=== PATIENT | male | born 1940 | race Hispanic/Latino ===

== ENCOUNTER → 2019-07-14 | Outpatient (CLI) | payer MEDICARE ==
--- NOTE | 2019-07-14 15:29 | Diagnostic Imaging Report ---
Examination: MRI SPINE LUMBAR WO CONTRAST History: Fall 3 months ago Comparison studies: None Technique: Sagittal, coronal and axial T2 , sagittal T1 and STIR; axial spin density oblique. Findings: Motion artifact on the axial proton density images. Number of lumbar vertebral bodies: Five. Alignment: Normal lordosis. No scoliosis. Soft tissues: No T2 hyperintense inflammatory changes. Posterior paraspinal soft tissues and muscles: No abnormality. Lower thoracic cord: Normal in signal and morphology. The tip of the conus is at T12. Cauda equina: No masses. No arachnoiditis. Vertebrae: No fractures, infection or neoplasm. Degenerative changes: L1-L2: Asymmetric to the left disc bulge results in moderate left neural foraminal narrowing. No right foraminal or canal stenosis L2-L3: Mild diffuse bulge and mild bilateral facet arthropathy result in mild bilateral neural foraminal narrowing. No canal stenosis. L3-L4: Diffuse bulge and mild bilateral facet arthropathy result in mild bilateral neural foraminal narrowing. No canal stenosis. L4-L5: Grade 1 anterolisthesis without pars defect. Asymmetric to the right disc bulge, ligamentum flavum thickening and bilateral facet arthropathy result in moderate right and mild left neural foraminal narrowing and mild canal stenosis. L5-S1: Diffuse disc bulge and bilateral facet arthropathy result in mild left neural foraminal narrowing. No right foraminal or canal stenosis. IMPRESSION: Despite limitation, no acute abnormality, specifically, no acute fracture. Degenerative grade 1 anterolisthesis of L4 on L5. Degenerative changes from L1-L2 through L5-S1 with mild canal stenosis and moderate right foraminal narrowing at L4-L5. Signed by: Dr. Rekha Chadwick M.D. on 07/14/2019 3:26 PM
== END ==
LOC: MRI 11:41
PROVIDERS: ATTEND Specialist
DX: M46.96 Unspecified inflammatory spondylopathy, lumbar region (principal)
CPT/HCPCS: 72148